=== PATIENT | male | born 1950 | race Caucasian/White ===

== ENCOUNTER 2017-11-13 11:08 | Observation (INO) | payer OTHER ==
[2017-11-13] VITALS (7 sets, daily range): BP systolic 113–188; BP diastolic 69–85; PULSE 58–75; RESP 16–19; TEMP 98.3–98.8; O2SAT 96–99
[~2017-11-13] VITALS: Ht 170.2 cm; Wt 90.6 kg
[2017-11-13] MEDS: SODIUM CHLOR 0.9% 1000 ML INJ 1,000 ML IV SCH ×2 (00:10→12:03)
[2017-11-13] MEDS ORDERED: CHOLESTEROL PILL (11:29)
[2017-11-13] MEDS ORDERED: TRAV0.00 EACH EYE (11:29)
[2017-11-13] MEDS ORDERED: DORZ2SOL7 EACH EYE (11:29)
[2017-11-13] MEDS ORDERED: POTA8CAP PO (11:29)
[2017-11-13] MEDS ORDERED: MAGN400T14 PO (11:29)
[2017-11-13] MEDS ORDERED: OMEP10CA PO (11:29)
[2017-11-13] MEDS ORDERED: DIAZ2TAB PO (11:29)
[2017-11-13] MEDS ORDERED: PIPERACIL-TAZO 3.375 GM PREMIX 50 ML IV ONE (11:45)
[2017-11-13 11:57] LABS: AUTOMATED NEUTROPHIL # 9.8 TH/MM3 (1.8-7.7); BASOPHIL # 0.1 TH/MM3 (0-0.2); BASOPHIL % 0.5 % (0.0-2.0); EOSINOPHIL # 0.1 TH/MM3 (0-0.4); EOSINOPHIL % 0.3 % (0.0-4.0); LYMPHOCYTE # 11.5 TH/MM3 (1.0-4.8); MEAN CELL VOLUME 84.6 FL (80.0-100.0); MEAN CORPUSCULAR HEMOGLOBIN 28.8 PG (27.0-34.0); MEAN PLATELET VOLUME 7.8 FL (7.0-11.0); MONO % 2.8 % (0.0-8.0); MONOCYTE # 0.6 TH/MM3 (0-0.9); NEUT % 44.4 % (16.0-70.0); PLATELET COUNT 207 TH/MM3 (150-450); RED BLOOD COUNT 5.55 MIL/MM3 (4.50-5.90); RED CELL DISTRIBUTION WIDTH 14.1 % (11.6-17.2)
--- NOTE | 2017-11-13 11:59 | PD ---
HPI Chief Complaint: Abdominal Pain Time Seen by Provider: 11:30 Travel History International Travel<30 days: No Contact w/Intl Traveler<30days: No Traveled to known affect area: No History of Present Illness HPI 66-year-old male that presents to the ED for evaluation of evaluation of appendicitis. Patient was seen by Dr. Ortega his primary care doctor today for evaluation of right lower quadrant pain since this morning. Per patient started around 3 AM and his primary care doctor recommended a CT scan. CT scan was done and show appendicitis. This was done at [facility]. Patient was sent here for evaluation and likely surgery. Patient voices no other medical issues at this time. He states that his pain is 7 out of 10. He states that he last ate this morning and all he had was coffee. She has a history of hernia repair years ago up [place] for an umbilical hernia and had a mesh placed. He denies any other symptoms. No bowel movement issues. No nausea or vomiting. No allergies to medication for no other medical issues. Has not taken anything for this. Nothing makes the pain better or worse. PFSH Past Medical History High Cholesterol: Yes Glaucoma: Yes Tetanus Vaccination: < 5 Years Influenza Vaccination: Yes Past Surgical History Abdominal Surgery: Yes (HERNIA ) Tonsillectomy: Yes (ADENOIDS ) Other Surgery: Yes (DEVIATED SEPTUM REPAIR AND UVULA REMOVAL ) Social History Alcohol Use: No Tobacco Use: No Substance Use: No Allergies-Medications (Allergen,Severity, Reaction): Coded Allergies: No Known Allergies (Unverified , 11/13/17) Reported Meds & Prescriptions Reported Meds & Active Scripts Active Reported Magnebind-400 Rx (Magnesium-Calcium Carbonates-Folic Acid) 400-200-1 Mg Tab 1 Tab PO TID Potassium Chloride ER (Potassium Chloride) 8 Meq Cap 8 Meq PO DAILY Diazepam 2 Mg Tab 2 Mg PO BID PRN [Cholesterol Pill] Omeprazole 10 Mg Cap 10 Mg PO DAILY Cosopt Opth Drops (Dorzolamide-Timolol Opth Drops) 22.3-6.8 Mg/Ml Soln 1 Drop EACH EYE BID Travatan Z Opth Drops (Travoprost) 0.004 % Soln 1 Drop EACH EYE HS Review of Systems Except as stated in HPI: all other systems reviewed are Neg Physical Exam Narrative GENERAL: SKIN: Warm and dry. HEAD: Atraumatic. Normocephalic. EYES: Pupils equal and round. No scleral icterus. No injection or drainage. ENT: No nasal bleeding or discharge. Mucous membranes pink and moist. Tongue is midline. No uvula deviation. NECK: Trachea midline. No JVD. CARDIOVASCULAR: Regular rate and rhythm. No murmurs, S3, S4. RESPIRATORY: No accessory muscle use. Clear to auscultation. Breath sounds equal bilaterally. GASTROINTESTINAL: Abdomen soft, reproducible right lower quadrant abdominal pain , nondistended. Hepatic and splenic margins not palpable. MUSCULOSKELETAL: Extremities without clubbing, cyanosis, or edema. No obvious deformities. Full range of motion of the upper and lower extremities bilaterally. 2+ pulses bilaterally. NEUROLOGICAL: Awake and alert. No obvious cranial nerve deficits. Motor grossly within normal limits. Five out of 5 muscle strength in the arms and legs. Normal speech. PSYCHIATRIC: Appropriate mood and affect; insight and judgment normal. Data Data Last Documented VS Vital Signs Date Time Temp Pulse Resp B/P (MAP) Pulse Ox O2 Delivery O2 Flow Rate FiO2 11/13/17 11:33 66 19 175/81 (112) 97 Room Air 11/13/17 11:17 98.3 Orders Orders Complete Blood Count With Diff (11/13/17 11:29) Comprehensive Metabolic Panel (11/13/17 11:29) Urinalysis - C+S If Indicated (11/13/17 11:29) Lipase (11/13/17 11:29) Iv Access Insert/Monitor (11/13/17 11:29) Oximetry (11/13/17 11:29) Piperacil-Tazo 3.375 Gm Premix (Zosyn 3. (11/13/17 11:45) Electrocardiogram (11/13/17 11:49) Chest, Single Ap (11/13/17 11:49) Sodium Chloride 0.9% Flush (Ns Flush) (11/13/17 12:00) Type And Screen (11/13/17 12:00) Admit Order (Ed Use Only) (11/13/17 12:04) Code Status (11/13/17 12:03) Vital Signs (Adult) Q4H (11/13/17 12:03) Activity Oob Ad Clarisa (11/13/17 12:03) Truck Striker / Telemetry .CONTINUOUS (11/13/17 12:03) Intake + Output MARIA ELENA.QSHIFT (11/13/17 12:03) Notify Dr: Other (11/13/17 12:03) Diet Npo (11/13/17 Lunch) Sodium Chlor 0.9% 1000 Ml Inj (Ns 1000 M (11/13/17 12:03) Sodium Chloride 0.9% Flush (Ns Flush) (11/13/17 12:15) Sodium Chloride 0.9% Flush (Ns Flush) (11/13/17 21:00) Acetaminophen (Tylenol) (11/13/17 12:15) Basic Metabolic Panel (Bmp) (11/14/17 06:00) Complete Blood Count With Diff (11/14/17 06:00) Resp Oxygen Adolfo C Titrat 1-4 L (11/13/17 ) Scd Bilateral/Knee High MARIA ELENA.BID (11/13/17 12:03) Naloxone Inj (Narcan Inj) (11/13/17 12:15) Sennosides (Senokot) (11/13/17 12:15) Bisacodyl Supp (Dulcolax Supp) (11/13/17 12:15) Lactulose Liq (Lactulose Liq) (11/13/17 12:15) Inpatient Certification (11/13/17 ) Ondansetron Odt (Zofran Odt) (11/13/17 12:15) Diazepam (Valium) (11/13/17 12:15) Dorzol-Timol 2-0.5% Opth Soln (Cosopt 2- (11/13/17 21:00) Potassium Chloride (Kcl) (11/14/17 09:00) (Nf) Travoprost Opth Drops (Travatan Z O (11/13/17 21:00) (Hub Use Only)Inp Phy Cons/Ref (11/13/17 ) Consult General Surgery (11/13/17 ) Place In Observation (11/13/17 ) Piperacil-Tazo 3.375 Gm Premix (Zosyn 3. (11/13/17 18:00) Labs Laboratory Tests Test 11/13/17 11:35 White Blood Count 22.0 TH/MM3 Red Blood Count 5.55 MIL/MM3 Hemoglobin 16.0 GM/DL Hematocrit 47.0 % Mean Corpuscular Volume 84.6 FL Mean Corpuscular Hemoglobin 28.8 PG Mean Corpuscular Hemoglobin Concent 34.0 % Red Cell Distribution Width 14.1 % Platelet Count 207 TH/MM3 Mean Platelet Volume 7.8 FL Neutrophils (%) (Auto) 44.4 % Lymphocytes (%) (Auto) 52.0 % Monocytes (%) (Auto) 2.8 % Eosinophils (%) (Auto) 0.3 % Basophils (%) (Auto) 0.5 % Neutrophils # (Auto) 9.8 TH/MM3 Lymphocytes # (Auto) 11.5 TH/MM3 Monocytes # (Auto) 0.6 TH/MM3 Eosinophils # (Auto) 0.1 TH/MM3 Basophils # (Auto) 0.1 TH/MM3 CBC Comment AUTO DIFF Urine Color YELLOW Urine Turbidity CLEAR Urine pH 5.5 Urine Specific Portia 1.019 Urine Protein NEG mg/dL Urine Glucose (UA) NEG mg/dL Urine Ketones NEG mg/dL Urine Occult Blood NEG Urine Nitrite NEG Urine Bilirubin NEG Urine Urobilinogen 0.2 MG/DL Urine Leukocyte Esterase NEG Urine RBC 1 /hpf Urine WBC LESS THAN 1 /hpf Microscopic Urinalysis Comment CULT NOT INDICATED Blood Urea Nitrogen 16 MG/DL Creatinine 1.16 MG/DL Random Glucose 113 MG/DL Total Protein 8.0 GM/DL Albumin 4.5 GM/DL Calcium Level 8.9 MG/DL Alkaline Phosphatase 64 U/L Aspartate Amino Transf (AST/SGOT) 15 U/L Alanine Aminotransferase (ALT/SGPT) 29 U/L Total Bilirubin 0.6 MG/DL Sodium Level 135 MEQ/L Potassium Level 4.1 MEQ/L Chloride Level 100 MEQ/L Carbon Dioxide Level 27.4 MEQ/L Anion Gap 8 MEQ/L Estimat Glomerular Filtration Rate 63 ML/MIN Lipase 189 U/L [facility] Medical Decision Making Medical Screen Exam Complete: Yes Emergency Medical Condition: Yes Medical Record Reviewed: Yes Interpretation(s) CBC & BMP Diagram 11/13/17 11:35 Total Protein 8.0, Albumin 4.5, Calcium Level 8.9, Alkaline Phosphatase 64, Aspartate Amino Transf (AST/SGOT) 15, Alanine Aminotransferase (ALT/SGPT) 29, Total Bilirubin 0.6 Differential Diagnosis Appendicitis was acute abdomen versus right lower quadrant pain Narrative Course 66-year-old male that presents to the ED for evaluation of appendicitis. Patient was properly examined and was found to have signs and symptoms consistent with appears to be appendicitis. Was able to review the records from [place] [facility] and patient did had a CT scan with findings consistent with appendicitis. My attending Dr. Triplett who was made aware of plan and of CT findings and spoke with Dr. Christy herself who agrees to be consulted and wants medicine to admit the patient. Patient and family agree with this. Labs and preop tests were ordered. Patient was started on Zosyn by my attending. HEPAS was paged. My attending spoke with Dr. Krueger who agrees to admission to his service for surgery. Diagnosis Primary Impression: Appendicitis Qualified Codes: K35.80 - Unspecified acute appendicitis Admitting Information Admitting Physician Requests: Observation Rah Meredith November 13, 2017 11:59
[2017-11-13] MEDS ORDERED: DEXAMETHASONE SOD PHOS 4 MG/ML VIAL IV ONE (12:00)
[2017-11-13] MEDS ORDERED: LIDOCAINE HCL 1% PF 5 ML SYRINGE OTHER ONE (12:00)
[2017-11-13] MEDS ORDERED: ROCURONIUM INJ 50 MG/5 ML SYRINGE IV PUSH ONE (12:00)
[2017-11-13] MEDS ORDERED: ACETAMINOPHEN 1000 MG/100 ML VIAL IV ONE (12:00)
[2017-11-13] MEDS ORDERED: SODIUM CHLORIDE 0.9% FLUSH 10 ML FLUSH IVF PRN (12:00)
[2017-11-13] MEDS ORDERED: SUGAMMADEX SODIUM 200 MG/2 ML VIAL IV PUSH ONE (12:00)
[2017-11-13] MEDS ORDERED: BUPIVACAINE/EPINEPHRINE 0.5% PF 30 ML VIAL ONE (12:00)
[2017-11-13] MEDS ORDERED: ONDANSETRON HCL 4 MG/2 ML VIAL IV ONE (12:00)
[2017-11-13] MEDS ORDERED: PROPOFOL 200 MG/20 ML AMP IV ONE (12:00)
--- NOTE | 2017-11-13 12:14 | HHI.HP ---
[facility] Ad[facility] Diagnosis Appendicitis Diagnoses: Chief Complaint: Appendicitis Travel History International Travel<30 Days: No Contact w/Intl Traveler <30 Da: No Traveled to Known Affected Are: No History of Present Illness This is a pleasant 66 y/o male who was sent to Emergency Room in this facility by his Primary care physician with diagnosis of Appendicitis, he was seen by his PCP Doctor Jordan right lower quadrant pain since this morning. Per patient started around 3 AM and his primary care doctor recommended a CT scan. CT scan was done and show appendicitis. This was done at [facility]. Patient was sent here for evaluation and likely surgery. Intensity of the pain 01/01, He states that he last ate this morning and all he had was coffee. She has a history of hernia repair years ago up [place] for an umbilical hernia and had a mesh placed. denied nausea and vomit, seen in Emergency room in the presence of his Mrs. Jameson Review of Systems Constitutional: DENIES: Fever, Chills, Change in appetite Endocrine: DENIES: Heat/cold intolerance Eyes: DENIES: Blurred vision, Eye pain Gastrointestinal: COMPLAINS OF: Abdominal pain Except as stated in HPI: all other systems reviewed are Neg Past Family Social History Past Medical History Hyperlipidemia Glaucoma GERD CLL Past Surgical History Hernia repair Tonsillectomy Adenoidectomy Deviated septum repair Reported Medications Reported Meds & Active Scripts Active Reported Magnebind-400 Rx (Magnesium-Calcium Carbonates-Folic Acid) 400-200-1 Mg Tab 1 Tab PO TID Potassium Chloride ER (Potassium Chloride) 8 Meq Cap 8 Meq PO DAILY Diazepam 2 Mg Tab 2 Mg PO BID PRN [Cholesterol Pill] Omeprazole 10 Mg Cap 10 Mg PO DAILY Cosopt Opth Drops (Dorzolamide-Timolol Opth Drops) 22.3-6.8 Mg/Ml Soln 1 Drop EACH EYE BID Travatan Z Opth Drops (Travoprost) 0.004 % Soln 1 Drop EACH EYE HS Allergies: Coded Allergies: No Known Allergies (Unverified , 11/13/17) Active Ordered Medications Current Medications Medications (Trade) Dose Ordered Sig/Candido Route Start Time Stop Time Status Last Admin (NS Flush) 2 ml UNSCH PRN IVF 11/13/17 12:00 Sodium Chloride 1,000 ml @ 100 mls/hr Q10H IV 11/13/17 12:03 (NS Flush) 2 ml UNSCH PRN IV FLUSH 11/13/17 12:15 (NS Flush) 2 ml BID IV FLUSH 11/13/17 21:00 (Tylenol) 650 mg Q4H PRN PO 11/13/17 12:15 (Zofran Odt) 4 mg Q6H PRN PO 11/13/17 12:15 (Narcan Inj) 0.4 mg UNSCH PRN IV PUSH 11/13/17 12:15 (Senokot) 17.2 mg Q12H PRN PO 11/13/17 12:15 (Dulcolax Supp) 10 mg DAILY PRN RECTAL 11/13/17 12:15 (Lactulose Liq) 30 ml DAILY PRN PO 11/13/17 12:15 (Valium) 2 mg BID PRN PO 11/13/17 12:15 (Cosopt 2-0.5% Opth Soln) 1 drop BID EACH EYE 11/13/17 21:00 (KCl) 8 meq DAILY PO 11/14/17 09:00 (Xalatan 0.005% Opth Soln) 1 drop HS EACH EYE 11/13/17 21:00 Piperacillin Sod/ Tazobactam Sod 50 ml @ 100 mls/hr Q6H IV 11/13/17 18:00 Family History Father with Hypertension Social History Denies any toxic habits. 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 Obesity SKIN: Warm and dry. HEAD: Atraumatic. Normocephalic. EYES: Pupils equal and round. No scleral icterus. No injection or drainage. ENT: No nasal bleeding or discharge. Mucous membranes pink and moist. Tongue is midline. No uvula deviation. NECK: Trachea midline. No JVD. CARDIOVASCULAR: Regular rate and rhythm. No murmurs, S3, S4. RESPIRATORY: No accessory muscle use. Clear to auscultation. Breath sounds equal bilaterally. GASTROINTESTINAL: Abdomen soft, reproducible right lower quadrant abdominal pain , nondistended. Hepatic and splenic margins not palpable. MUSCULOSKELETAL: Extremities without clubbing, cyanosis, or edema. No obvious deformities. Full range of motion of the upper and lower extremities bilaterally. 2+ pulses bilaterally. NEUROLOGICAL: Awake and alert. No obvious cranial nerve deficits. Motor grossly within normal limits. Five out of 5 muscle strength in the arms and legs. Normal speech. PSYCHIATRIC: Appropriate mood and affect; insight and judgment normal. Laboratory Laboratory Tests Test 11/13/17 11:35 White Blood Count 22.0 Red Blood Count 5.55 Hemoglobin 16.0 Hematocrit 47.0 Mean Corpuscular Volume 84.6 Mean Corpuscular Hemoglobin 28.8 Mean Corpuscular Hemoglobin Concent 34.0 Red Cell Distribution Width 14.1 Platelet Count 207 Mean Platelet Volume 7.8 Neutrophils (%) (Auto) 44.4 Lymphocytes (%) (Auto) 52.0 Monocytes (%) (Auto) 2.8 Eosinophils (%) (Auto) 0.3 Basophils (%) (Auto) 0.5 Neutrophils # (Auto) 9.8 Lymphocytes # (Auto) 11.5 Monocytes # (Auto) 0.6 Eosinophils # (Auto) 0.1 Basophils # (Auto) 0.1 CBC Comment AUTO DIFF Result Diagram: 11/13/[address] abdomen and Pelvis Dilated fluid filled appendix with probable appendicoliths and periappendiceal inflammatory changes no periappendiceal abscess is noted. Mild Splenomegaly Uncomplicated colonic diverticulosis Degenerative changes and scoliosis of the thoracolumbar spine. Caprini VTE Risk Assessment Caprini VTE Risk Assessment: No/Low Risk (score <= 1) Caprini Risk Assessment Model Point Value = 1 Point Value = 2 Point Value = 3 Point Value = 5 Age 41-60 Minor surgery BMI > 25 kg/m2 Swollen legs Varicose veins or History of unexplained or recurrent spontaneous Oral contraceptives or hormone replacement Sepsis (< 1 month) Serious lung disease, including pneumonia (< 1 month) Abnormal pulmonary function Acute myocardial infarction Congestive heart failure (< 1 month) History of inflammatory bowel disease Medical patient at bed rest Age 61-74 Arthroscopic surgery Major open surgery (> 45 min) Laparoscopic surgery (> 45 min) Malignancy Confined to bed (> 72 hours) Immobilizing plaster cast Central venous access Age >= 75 History of VTE Family history of VTE Factor V Leiden Prothrombin [id number] Lupus anticoagulant Anticardiolipin antibodies Elevated serum homocysteine Heparin-induced thrombocytopenia Other congenital or acquired thrombophilia Stroke (< 1 month) Elective arthroplasty Hip, pelvis, or leg fracture Acute spinal cord injury (< 1 month) Prophylaxis Regimen Total Risk Factor Score Risk Level Prophylaxis Regimen 0-1 Low Early ambulation 2 Moderate Order ONE of the following: *Sequential Compression Device (SCD) *Heparin 5000 units SQ BID 3-4 Higher Order ONE of the following medications: *Heparin 5000 units SQ TID *Enoxaparin/Lovenox 40 mg SQ daily (WT < 150 kg, CrCl > 30 mL/min) *Enoxaparin/Lovenox 30 mg SQ daily (WT < 150 kg, CrCl > 10-29 mL/min) *Enoxaparin/Lovenox 30 mg SQ BID (WT < 150 kg, CrCl > 30 mL/min) AND/OR *Sequential Compression Device (SCD) 5 or more Highest Order ONE of the following medications: *Heparin 5000 units SQ TID (Preferred with Epidurals) *Enoxaparin/Lovenox 40 mg SQ daily (WT < 150 kg, CrCl > 30 mL/min) *Enoxaparin/Lovenox 30 mg SQ daily (WT < 150 kg, CrCl > 10-29 mL/min) *Enoxaparin/Lovenox 30 mg SQ BID (WT < 150 kg, CrCl > 30 mL/min) AND *Sequential Compression Device (SCD) Assessment and Plan Assessment and Plan 1. Abdominal pain secondary to Acute appendicitis, recommended by General Specialty Person Doctor Avinash Christy to admit to medical team and he will be interior design consultant. CT abdomen and Pelvis Dilated fluid filled appendix with probable appendicoliths and periappendiceal inflammatory changes no periappendiceal abscess is noted. Mild Splenomegaly Uncomplicated colonic diverticulosis Degenerative changes and scoliosis of the thoracolumbar spine. 2. Hyperlipidemia to continue home medicines 3. Glaucoma continue Home medicines 4. GERD gastric protection 5. CLL he has research laboratory specialist following outpatient no management given yet. DVT prophylaxis SCDs due to surgery Code Status Full code. Discussed Condition With patient his and ER physician. Physician Certification 2 Midnight Certification Type: Admission for Inpatient Services Order for Inpatient Services The services are ordered in accordance with Medicare regulations or non- Medicare payer requirements, as applicable. In the case of services not specified as inpatient-only, they are appropriately provided as inpatient services in accordance with the 2-midnight benchmark. Estimated LOS (days): 1 days is the estimated time the patient will need to remain in the hospital, assuming treatment plan goals are met and no additional complications. Post-Hospital Plan: Home Jerardo Millan MD November 13, 2017 12:14
[2017-11-13] MEDS ORDERED: LACTULOSE SYRUP 20 GM/30 ML CUP PO PRN (12:15)
[2017-11-13] MEDS ORDERED: SENNOSIDES 8.6 MG TAB PO PRN (12:15)
[2017-11-13] MEDS ORDERED: ACETAMINOPHEN 325 MG TAB PO PRN (12:15)
[2017-11-13] MEDS ORDERED: SODIUM CHLORIDE 0.9% FLUSH 10 ML FLUSH IV FLUSH PRN (12:15)
[2017-11-13] MEDS ORDERED: NALOXONE HCL 0.4 MG/ML AMP IV PUSH PRN (12:15)
[2017-11-13] MEDS ORDERED: BISACODYL 10 MG SUPP RECTAL PRN (12:15)
[2017-11-13] MEDS ORDERED: ONDANSETRON ODT 4 MG TAB PO PRN (12:15)
[2017-11-13 12:19] LABS: BILIRUBIN, URINE NEG (NEG); BLOOD, URINE NEG (NEG); GLUCOSE,URINE NEG (NEG); KETONE, URINE NEG (NEG); NITRITE,URINE NEG (NEG); PH, URINE 5.5 (5.0-8.5); URINE COLOR YELLOW (YELLW/STRAW); URINE LEUKOCYTE ESTERASE NEG (NEG)
[2017-11-13 12:21] LABS: ALBUMIN 4.5 GM/DL (3.4-5.0); AST (GOT) 15 U/L (15-37); BICARBONATE 27.4 MEQ/L (21.0-32.0); BLOOD UREA NITROGEN 16 MG/DL (7-18); CALCIUM 8.9 MG/DL (8.5-10.1); CHLORIDE 100 MEQ/L (98-107); CREATININE 1.16 MG/DL (0.60-1.30); GLOMERULAR FILTRATION RATE 63 ML/MIN (>89); GLUCOSE,RANDOM 113 MG/DL (74-106); SODIUM (NA) 135 MEQ/L (136-145)
[2017-11-13 12:30] LABS: ALKALINE PHOSPHATASE 64 U/L (45-117); ALT (GPT) 29 U/L (12-78); TOTAL BILIRUBIN ADULT 0.6 MG/DL (0.2-1.0)
--- NOTE | 2017-11-13 12:30 | PD ---
Physical Exam Narrative GENERAL: 66-year-old male in no apparent distress SKIN: Focused skin assessment warm/dry. HEAD: Atraumatic. Normocephalic. EYES: Pupils equal and round. No scleral icterus. No injection or drainage. ENT: No nasal bleeding or discharge. Mucous membranes pink and moist. NECK: Trachea midline. CARDIOVASCULAR: Regular rate and rhythm. RESPIRATORY: No accessory muscle use. Clear to auscultation. Breath sounds equal bilaterally. GASTROINTESTINAL: Abdomen soft, tender right lower quadrant, nondistended. No rebound MUSCULOSKELETAL: No obvious deformities. No clubbing. No cyanosis. NEUROLOGICAL: Awake and alert. No obvious cranial nerve deficits. Motor grossly within normal limits. Normal speech. PSYCHIATRIC: Appropriate mood and affect; insight and judgment normal. Data Data Last Documented VS Vital Signs Date Time Temp Pulse Resp B/P (MAP) Pulse Ox O2 Delivery O2 Flow Rate FiO2 11/13/17 11:33 66 19 175/81 (112) 97 Room Air 11/13/17 11:17 98.3 Orders Orders Complete Blood Count With Diff (11/13/17 11:29) Comprehensive Metabolic Panel (11/13/17 11:29) Urinalysis - C+S If Indicated (11/13/17 11:29) Lipase (11/13/17 11:29) Iv Access Insert/Monitor (11/13/17 11:29) Oximetry (11/13/17 11:29) Piperacil-Tazo 3.375 Gm Premix (Zosyn 3. (11/13/17 11:45) Electrocardiogram (11/13/17 11:49) Chest, Single Ap (11/13/17 11:49) Sodium Chloride 0.9% Flush (Ns Flush) (11/13/17 12:00) Type And Screen (11/13/17 12:00) Admit Order (Ed Use Only) (11/13/17 12:04) Code Status (11/13/17 12:03) Vital Signs (Adult) Q4H (11/13/17 12:03) Activity Oob Ad Clarisa (11/13/17 12:03) Fire Department Marine Engineer / Telemetry .CONTINUOUS (11/13/17 12:03) Intake + Output MARIA ELENA.QSHIFT (11/13/17 12:03) Notify Dr: Other (11/13/17 12:03) Diet Npo (11/13/17 Lunch) Sodium Chlor 0.9% 1000 Ml Inj (Ns 1000 M (11/13/17 12:03) Sodium Chloride 0.9% Flush (Ns Flush) (11/13/17 12:15) Sodium Chloride 0.9% Flush (Ns Flush) (11/13/17 21:00) Acetaminophen (Tylenol) (11/13/17 12:15) Basic Metabolic Panel (Bmp) (11/14/17 06:00) Complete Blood Count With Diff (11/14/17 06:00) Resp Oxygen Adolfo C Titrat 1-4 L (11/13/17 ) Scd Bilateral/Knee High MARIA ELENA.BID (11/13/17 12:03) Naloxone Inj (Narcan Inj) (11/13/17 12:15) Sennosides (Senokot) (11/13/17 12:15) Bisacodyl Supp (Dulcolax Supp) (11/13/17 12:15) Lactulose Liq (Lactulose Liq) (11/13/17 12:15) Inpatient Certification (11/13/17 ) Ondansetron Odt (Zofran Odt) (11/13/17 12:15) Diazepam (Valium) (11/13/17 12:15) Dorzol-Timol 2-0.5% Opth Soln (Cosopt 2- (11/13/17 21:00) Potassium Chloride (Kcl) (11/14/17 09:00) (Nf) Travoprost Opth Drops (Travatan Z O (11/13/17 21:00) (Hub Use Only)Inp Phy Cons/Ref (11/13/17 ) Consult General Surgery (11/13/17 ) Place In Observation (11/13/17 ) Piperacil-Tazo 3.375 Gm Premix (Zosyn 3. (11/13/17 18:00) Labs Laboratory Tests Test 11/13/17 11:35 White Blood Count 22.0 TH/MM3 Red Blood Count 5.55 MIL/MM3 Hemoglobin 16.0 GM/DL Hematocrit 47.0 % Mean Corpuscular Volume 84.6 FL Mean Corpuscular Hemoglobin 28.8 PG Mean Corpuscular Hemoglobin Concent 34.0 % Red Cell Distribution Width 14.1 % Platelet Count 207 TH/MM3 Mean Platelet Volume 7.8 FL Neutrophils (%) (Auto) 44.4 % Lymphocytes (%) (Auto) 52.0 % Monocytes (%) (Auto) 2.8 % Eosinophils (%) (Auto) 0.3 % Basophils (%) (Auto) 0.5 % Neutrophils # (Auto) 9.8 TH/MM3 Lymphocytes # (Auto) 11.5 TH/MM3 Monocytes # (Auto) 0.6 TH/MM3 Eosinophils # (Auto) 0.1 TH/MM3 Basophils # (Auto) 0.1 TH/MM3 CBC Comment AUTO DIFF Blood Urea Nitrogen 16 MG/DL Creatinine 1.16 MG/DL Random Glucose 113 MG/DL Albumin 4.5 GM/DL Calcium Level 8.9 MG/DL Aspartate Amino Transf (AST/SGOT) 15 U/L Sodium Level 135 MEQ/L Potassium Level 4.1 MEQ/L Chloride Level 100 MEQ/L Carbon Dioxide Level 27.4 MEQ/L Anion Gap 8 MEQ/L Estimat Glomerular Filtration Rate 63 ML/MIN Lipase 189 U/L MDM Supervised Visit with STEFFANY: Yes Interpretation(s) CBC & BMP Diagram 11/13/17 11:35 Albumin 4.5, Calcium Level 8.9, Aspartate Amino Transf (AST/SGOT) [address] shows appendicitis without abscess Narrative Course I, Dr. lozada, have reviewed the advance practice practitioner's documentation and am in agreement, met with the patient face to face, made the diagnosis, and the medical decision making was done by me. *My assessment and Findings: 66-year-old male who presents with outpatient report of appendicitis. Patient symptoms are consistent with this. Discussed with surgeon and given Zosyn and will admit to medicine Physician Communication Physician Communication dr mills agrees to consult, requests admit to medicine Diagnosis Primary Impression: Appendicitis Qualified Codes: K35.80 - Unspecified acute appendicitis Admitting Information Admitting Physician Requests: Observation Jigna Lozada MD November 13, 2017 12:30
[2017-11-13 12:32] LABS: LYMPHOCYTES 60 % (9-44); NEUTROPHIL # MANUAL DIFF 8.8 TH/MM3 (1.8-7.7); POLYS (SEG NEUTROPHILS) 40 % (16-70)
--- NOTE | 2017-11-13 13:33 | RADRPT ---
EXAM DATE: 11/13/2017 1:00 PM EDT AGE/SEX: 66 years / Male INDICATIONS: Evaluate for pneumothorax, pneumonia or communicable disease, for appendectomy today, a bdominal pain, gas and pressure upper abdomen and lower chest CLINICAL DATA: This is the patient's initial encounter. Patient reports that signs and symptoms have been present for 1 day and indicates a pain score of 10/10. MEDICAL/SURGICAL HISTORY: . appendicitis None. COMPARISON: No prior [facility] exams available for comparison. FINDINGS: A single AP view of the chest demonstrates the lungs to be symmetrically aerated without e vidence of mass, infiltrate or effusion. The cardiomediastinal contours are unremarkable. Osseous s tructures are intact. CONCLUSION: No acute pulmonary infiltrates Electronically signed by: Franc Henriquez MD 11/13/2017 1:32 PM EDT
[2017-11-13] MEDS ORDERED: METOCLOPRAMIDE HCL 10 MG/2 ML VIAL IV PUSH ONE (13:45)
[2017-11-13] MEDS ORDERED: MORPHINE SULFATE 4 MG/ML INJ IV PUSH ONE (13:45)
--- NOTE | 2017-11-13 14:02 | EKG ---
Date Performed: 11/13/2017 Time Performed: 12:15:24 PTAGE: 66 years EKG: Baseline artifact present Sinus rhythm RIGHT BUNDLE BRANCH BLOCK ABNORMAL ECG NO PREVIOUS TRACING DOCTOR: Roberto Bowers Interpretating Date/Time 11/13/2017 14:01:56
--- NOTE | 2017-11-13 18:26 | MB ---
cc: Avinash Christy MD DATE: 11/13/2017 REASON FOR CONSULTATION: Acute appendicitis. HISTORY OF PRESENT ILLNESS: The patient is a 66-year-old male who started to have pain last night and had increasing pain today. Patient had CT scan which demonstrates appendicitis at [facility]. The patient was sent to the [place] emergency department for evaluation. The patient had no nausea or vomiting and had a bowel movement early this morning. The patient had coffee with cream early this morning. REVIEW OF SYSTEMS: Negative except for the following, he has a history of CLL that he reports as stage I. He has GE reflux disease and glaucoma for which he takes eyedrops, as well as history of hyperlipidemia. PAST SURGICAL HISTORY: Include adenoidectomy, deviated septum repair, as well as tonsillectomy. The patient also reports umbilical hernia repair with mesh. MEDICATIONS: Include: 1. Omeprazole 10 mg p.o. every day. 2. Cosopt ophthalmic drops 1 drop in each eye b.i.d. 3. Travatan Z ophthalmic drops 0.004% one drop in each eye at bedtime. 4. Diazepam 2 mg p.o. b.i.d. p.r.n. 5. Potassium chloride 8 mEq every day. 6. MagneBind 400 RX 1 tab p.o. t.i.d. ALLERGIES: THE PATIENT HAS NO KNOWN ALLERGIES. SOCIAL HISTORY: Denies any drinking or smoking or use of illicit drugs. PHYSICAL EXAMINATION: GENERAL: Exam reveals a male in no acute distress. VITAL SIGNS: BP 175/81, pulse 66, respirations 19, 97% saturation on room air. Sclerae are anicteric. Pupils are reactive. NECK: Supple. CHEST: Clear to auscultation. CARDIOVASCULAR: Reveals regular rate and rhythm. ABDOMEN: Soft, with tenderness in the right lower quadrant. There is an edge of mesh that can be palpated in the umbilicus. There is no evidence of hernias. EXTREMITIES: Pulses are present. NEUROLOGIC: Nonfocal. LABORATORY DATA: Demonstrate WBCs of 22.0, hemoglobin is 16, hematocrit is 47.0, patient has 11.5 lymphs, 9.8 neutrophils with 52% lymphocytes on the automated diff. The patient has 40 neutrophils, 60 lymphocytes on the manual diff. Chemistries demonstrate BUN of 16, creatinine of 1.16, potassium is 4.1. Urinalysis is negative. Immunology demonstrates IgG of 764, which is in normal reference range of 670-1650. Imaging, outside CT scan demonstrating a dilated appendix with a periappendiceal inflammatory process. No perforation or free fluid noted. ASSESSMENT: Acute appendicitis without perforation. PLAN: The patient has been given IV Zosyn. I am attempting to get the patient onto the operative schedule as soon as possible. I have been informed as of 11:54 a.m. that they will not be able to accommodate until late this afternoon. We will await confirmation of timing. I have discussed risks of surgery with the patient and his including, but not limited to, bleeding, infection, leakage, adhesion formation, need for drainage with abscess formation. I have discussed remedies, consequences, alternatives and convalescence; they vocalized understanding and agreed to proceed. MD SHIMON Seth/SYL , 05:58 PM , 06:25 PM MTDD
[2017-11-13] MEDS ORDERED: LACTATED RINGER'S 1000 ML IV PRN (18:30)
[2017-11-13] MEDS ORDERED: POVIDONE IODINE 5% (ANTISEPSIS KIT) 4 APPLICATIONS EACH NARE PRN (18:30)
[2017-11-13] MEDS ORDERED: CHLORHEXIDINE GLUCONATE 2 % 1 PACK (2 CLOTHS) TOPICAL PRN (18:30)
[2017-11-13] MEDS ORDERED: SODIUM CHLORID 0.9% 500 ML IV PRN (18:30)
[2017-11-13] MEDS: PIPERACIL-TAZO 3.375 GM PREMIX 50 ML IV SCH (18:42)
[2017-11-13] MEDS: SODIUM CHLORIDE 0.9% FLUSH 10 ML FLUSH IV FLUSH SCH (21:00)
[2017-11-13] MEDS: LATANOPROST 0.005% OPHT SOLN 2.5 ML BTL EACH EYE SCH (21:00)
[2017-11-13] MEDS: DORZOLAMIDE/TIMOLOL OPTH SOLN 10 ML BTL EACH EYE SCH (21:00)
[2017-11-14] VITALS (10 sets, daily range): BP systolic 134–190; BP diastolic 65–80; PULSE 67–79; RESP 16–20; TEMP 95.7–98.4; O2SAT 91–100
[2017-11-14] MEDS ORDERED: ACETAMINOPHEN/HYDROcodone 325 MG/7.5 MG TAB PO PRN ×2
--- NOTE | 2017-11-14 00:02 | HHI.PR ---
cc: Avinash Christy MD Immediate Post Op Note Procedure Date: November 13, 2017 Pre Op Diagnosis: Acute appendicitis Post Op Diagnosis: Perforated appendicitis Surgeon: Avinash Christy Technology Specialist(s): Uma Ledezma CFA Procedure: Laparoscopic appendectomy Findings: Gangrenous appendicitis with perforation Complications: None Specimen(s) removed: Appendix to pathology Estimated blood loss: 75 ml Anesthesia: General Drains: None IVF (1300 ml) Patient to: PACU Patient Condition: Good Date/Time of Procedure: SEE SURGICAL CARE RECORD Avinash Christy MD November 14, 2017 00:02
[2017-11-14] MEDS: PIPERACIL-TAZO 3.375 GM PREMIX 50 ML IV SCH ×4 (00:10→18:56)
--- NOTE | 2017-11-14 00:22 | MP ---
cc: Avinash Christy MD DATE OF OPERATION: 11/13/2017 PROCEDURE PERFORMED: Laparoscopic appendectomy. PREOPERATIVE DIAGNOSIS: Acute appendicitis. POSTOPERATIVE DIAGNOSIS: Gangrenous appendicitis with contained perforation. ESTIMATED BLOOD LOSS: 75 mL FLUIDS: 1300 mL crystalloid. COMPLICATIONS: None. DRAINS: None. SPECIMENS: Appendix to pathology. PROCEDURE IN DETAIL: The patient was taken to the operating room and placed on the operating table in the supine position. After an adequate level of general endotracheal anesthesia was achieved, the abdomen was shaved, prepped and draped. Timeout was taken, confirming the correct patient, site and procedure to be performed. Incision was made below the umbilicus in a longitudinal fashion and carried down to the fascia. Subfascial plane was developed and the 12 mm trocar was then inserted. The abdomen was insufflated. We were in the preperitoneal space and, thus, the trocar was removed. The posterior fascia was elevated and this was opened sharply. The peritoneal cavity was then directly visualized. A 12 mm trocar was reinserted and the balloon inflated. The abdomen was then insufflated. Two 5 mm trocars were then placed with the patient in Trendelenburg position. The first was placed in the right lower quadrant and the second to the right of the midline, but between the umbilicus and the symphysis. Both entered the abdominal cavity under direct vision uneventfully. These positions were chosen slightly out of symmetry because the appendix was located in the right lower quadrant, but up towards the level of the umbilicus. At this point, the appendix was seen to be plastered against the cecum. This was dissected off with gentle blunt dissection. The appendix was seen to be gangrenous at this point. In the appendix off of the cecum, a small perforation was present, but was contained. By manipulating the appendix, this was freely perforated. All material was then irrigated and aspirated immediately. When this had been completed, the mesoappendix was dissected off of the appendix with the Harmonic scalpel. When this had been completely dissected, a 0 PDS Endoloop was slipped over the appendix and cinched down at the base. The PDS Endoloop was trimmed and the appendix divided 1 cm distal to the Endoloop. The appendix was placed into an EndoCatch device and removed via the infraumbilical midline 12 mm trocar site. The appendiceal stump was reexamined, irrigated and seemed to be dry. The mesoappendix was dry as well. Copious irrigation was utilized to clean the entire right lower quadrant. When this had been completed, the appendiceal stump and mesoappendix were seen to be clean and dry. Insufflation was discontinued and the 5 mm trocars were removed under direct vision. No bleeding was noted from the trocar sites. The infraumbilical 12 mm trocar was removed and the fascia closed in 2 layers with 0 Vicryl suture in a simple interrupted fashion. When this had been completed, the remaining local anesthetic was injected into the trocar sites. The skin was closed at all 3 trocar sites with 4-0 Vicryl in an interrupted buried fashion. All sites were dressed with Steri-Strips. A drain was not placed, as the perforation was only at the time of the surgery and all contamination was immediately aspirated. The patient tolerated the procedure well. MD SHIMON Seth/SYL , 12:07 AM , 12:22 AM ANDRESSA
[2017-11-14] MEDS ORDERED: DO NOT ADM ANY ANTICOAGULANT DRUGS PRN (00:30)
[2017-11-14] MEDS: DORZOLAMIDE/TIMOLOL OPTH SOLN 10 ML BTL EACH EYE SCH ×2 (06:58→22:47)
[2017-11-14] MEDS: SODIUM CHLOR 0.9% 1000 ML INJ 1,000 ML IV SCH ×2 (08:03→18:03)
[2017-11-14 09:34] LABS: AUTOMATED NEUTROPHIL # 11.2 TH/MM3 (1.8-7.7); BASOPHIL % 0.1 % (0.0-2.0); HEMATOCRIT 42.9 % (39.0-51.0); HEMOGLOBIN 14.6 GM/DL (13.0-17.0); LYMPH % 42.9 % (9.0-44.0); MEAN CORPUSCULAR HEMOGLOBIN 28.9 PG (27.0-34.0); MONO % 3.1 % (0.0-8.0); MONOCYTE # 0.7 TH/MM3 (0-0.9); NEUT % 53.9 % (16.0-70.0); PLATELET COUNT 187 TH/MM3 (150-450); RED BLOOD COUNT 5.05 MIL/MM3 (4.50-5.90); RED CELL DISTRIBUTION WIDTH 13.6 % (11.6-17.2); WHITE BLOOD COUNT 20.9 TH/MM3 (4.0-11.0)
[2017-11-14 09:59] LABS: BICARBONATE 22.3 MEQ/L (21.0-32.0); CALCIUM 8.2 MG/DL (8.5-10.1)
--- NOTE | 2017-11-14 10:09 | HHI.PR ---
Subjective Subjective Notes Resting in bed Feeling okay Walked already this AM Objective Vitals/I&O Vital Signs Date Time Temp Pulse Resp B/P (MAP) Pulse Ox O2 Delivery O2 Flow Rate FiO2 11/14/17 08:30 98.1 68 18 134/65 (88) 94 11/14/17 01:00 Nasal Cannula 2 Labs Laboratory Tests Test 11/13/17 11:35 11/14/17 09:10 White Blood Count 22.0 20.9 Red Blood Count 5.55 5.05 Hemoglobin 16.0 14.6 Hematocrit 47.0 42.9 Mean Corpuscular Volume 84.6 85.0 Mean Corpuscular Hemoglobin 28.8 28.9 Mean Corpuscular Hemoglobin Concent 34.0 34.0 Red Cell Distribution Width 14.1 13.6 Platelet Count 207 187 Mean Platelet Volume 7.8 8.0 Neutrophils (%) (Auto) 44.4 53.9 Lymphocytes (%) (Auto) 52.0 42.9 Monocytes (%) (Auto) 2.8 3.1 Eosinophils (%) (Auto) 0.3 0.0 Basophils (%) (Auto) 0.5 0.1 Neutrophils # (Auto) 9.8 11.2 Lymphocytes # (Auto) 11.5 9.0 Monocytes # (Auto) 0.6 0.7 Eosinophils # (Auto) 0.1 0.0 Basophils # (Auto) 0.1 0.0 CBC Comment AUTO DIFF AUTO DIFF Differential Total Cells Counted 100 Neutrophils % (Manual) 40 Lymphocytes % 60 Neutrophils # (Manual) 8.8 Differential Comment FINAL DIFF MANUAL Platelet Estimate NORMAL Platelet Morphology Comment NORMAL Urine Color YELLOW Urine Turbidity CLEAR Urine pH 5.5 Urine Specific [place] 1.019 Urine Protein NEG Urine Glucose (UA) NEG Urine Ketones NEG Urine Occult Blood NEG Urine Nitrite NEG Urine Bilirubin NEG Urine Urobilinogen 0.2 Urine Leukocyte Esterase NEG Urine RBC 1 Urine WBC LESS THAN 1 Microscopic Urinalysis Comment CULT NOT INDICATED Blood Urea Nitrogen 16 11 Creatinine 1.16 Random Glucose 113 164 Total Protein 8.0 Albumin 4.5 Calcium Level 8.9 8.2 Alkaline Phosphatase 64 Aspartate Amino Transf (AST/SGOT) 15 Alanine Aminotransferase (ALT/SGPT) 29 Total Bilirubin 0.6 Sodium Level 135 138 Potassium Level 4.1 3.9 Chloride Level 100 104 Carbon Dioxide Level 27.4 22.3 Anion Gap 8 12 Estimat Glomerular Filtration Rate 63 Lipase 189 Immunoglobulin G Total 764 Cardiovascular: Regular Lungs: Clear Abdomen: Other (soft; minimally tender; umbilical incision with some mild drainage of gauze ) Extremities: No edema A/P Assessment and Plan 66 year old male POD1 lap appy; gangrenous; with perforation -Clear liquids -Patient high risk for ileus--- encouraged small sips -IVF -Zosyn -Pain control -OOB as tolerated -Transfer to ---I spoke with Charge Nurse Katie Attending Note - Dr. Christy No fevers; tolerating clears Old drainage on umbilicus No flatus or BM yet; at increased risk for abscess and ileus Advance to full liquids; regular diet when bowel activity returns D/C tele; change to PO antibiotics in AM; will need 5 days after discharge to minimize chance of abscess formation OK to shower Return to office tentatively next Sunday; he has tramadol at home; requested NO NARCOTICS to go home The exam, history, and the medical decision-making described in the above note were completed with the assistance of the mid-level provider. I reviewed and agree with the findings presented. I attest that I had a [id number] encounter with the patient on the same day, and personally performed and documented my assessment and findings in the medical record. Whit KaurP/Porcelain Enamel Sprayer LUDWIN November 14, 2017 10:08 Avinash Christy MD November 14, 2017 13:33
[2017-11-14 10:11] LABS: CREATININE 1.16 MG/DL (0.60-1.30)
[2017-11-14] MEDS: POTASSIUM CHLORIDE 8 MEQ CAP PO SCH (10:41)
[2017-11-14] MEDS: SODIUM CHLORIDE 0.9% FLUSH 10 ML FLUSH IV FLUSH SCH ×2 (10:41→22:47)
[2017-11-14 10:49] LABS: LYMPHOCYTES 44 % (9-44); MONOCYTES 6 % (0-8); NEUTROPHIL # MANUAL DIFF 10.5 TH/MM3 (1.8-7.7); POLYS (SEG NEUTROPHILS) 50 % (16-70)
--- NOTE | 2017-11-14 12:58 | HHI.PR ---
Subjective Remarks Follow-up appendicitis. Complaining of tolerable pain does not want to take narcotic. Tolerated liquid diet still has not passed gas. Objective Vitals Vital Signs Date Time Temp Pulse Resp B/P (MAP) Pulse Ox O2 Delivery O2 Flow Rate FiO2 11/14/17 12:00 95.7 67 17 140/73 (95) 100 11/14/17 08:30 98.1 68 18 134/65 (88) 94 11/14/17 04:00 74 11/14/17 01:30 97.5 69 16 152/70 (97) 91 11/14/17 01:00 67 13 144/68 (93) 95 Nasal Cannula 2 11/14/17 00:45 68 14 143/67 (92) 95 Nasal Cannula 2 11/14/17 00:34 96 Nasal Cannula 2.00 11/14/17 00:30 97.6 81 20 151/70 (97) 96 Nasal Cannula 2 11/14/17 00:15 90 16 165/69 (101) 93 Room Air 11/14/17 00:03 97.7 101 15 168/79 (108) 95 Simple Mask 5 11/13/17 20:45 70 18 159/79 (105) 92 11/13/17 20:15 98.8 74 19 163/72 (102) 92 11/13/17 20:15 74 11/13/17 19:43 98.8 73 16 188/84 (118) 96 11/13/17 16:41 98.4 64 18 162/ 96 11/13/17 14:50 11/13/17 13:47 18 11/13/17 13:37 61 17 147/69 (95) 98 Room Air I/O 11/13/17 11/13/17 11/13/17 11/14/17 11/14/17 11/14/17 07:00 15:00 23:00 07:00 15:00 23:00 Intake Total 50 ml 550 ml 1300 ml Output Total 0 ml 475 ml Balance 50 ml 550 ml 825 ml Intake Oral 0 ml IV Total 50 ml 550 ml Other 1300 ml Output Urine Total 400 ml Estimated Blood Loss 75 ml Other 0 ml # Voids 1 1 # Bowel Movements 1 Result Diagram: 11/14/17 0910 11/14/17 0910 Imaging Last Impressions Chest X-Ray 11/13/17 1149 Signed Impressions: CONCLUSION: No acute pulmonary infiltrates Objective Remarks GENERAL: No acute distress. SKIN: Warm and dry. CARDIOVASCULAR: Regular rate and rhythm. No murmurs, S3, S4. RESPIRATORY: No accessory muscle use. Clear to auscultation. Breath sounds equal bilaterally. GASTROINTESTINAL: Abdomen soft, Tender over operative site, nondistended. MUSCULOSKELETAL: Extremities without clubbing, cyanosis, or edema. No obvious deformities. Full range of motion of the upper and lower extremities bilaterally. 2+ pulses bilaterally. NEUROLOGICAL: Awake and alert. No obvious cranial nerve deficits. Motor grossly within normal limits. Five out of 5 muscle strength in the arms and legs. Normal speech. PSYCHIATRIC: Appropriate mood and affect; insight and judgment normal. Procedures appendectomy A/P Problem List: (1) Appendicitis ICD Code: K37 - Unspecified appendicitis Status: Acute Assessment and Plan 1. Gangrenous appendicitis with contained perforation status post laparoscopic appendectomy. Stable with improving leukocytosis continue postoperative care with IV Zosyn, pain management counseled regarding narcotics, clear liquid diet , increase activity and incentive spirometry. 2. Multiple medical conditions of hyperlipidemia, Glaucoma and CLL. Stable continue outpatient medications as appropriate DVT prophylaxis SCDs. Pharmacological prophylaxis per general surgery Discharge Planning Discharge per general surgery Problem Qualifiers (1) Appendicitis: Qualified Codes: K35.80 - Unspecified acute appendicitis Misha Khan MD November 14, 2017 12:58
[2017-11-14] MEDS ORDERED: MORPHINE SULFATE 4 MG/ML INJ IV PUSH PRN (13:30)
[2017-11-14] MEDS ORDERED: ZOLPIDEM TARTRATE 10 MG TAB PO PRN (13:30)
[2017-11-14] MEDS: metroNIDAZOLE 500 MG TAB PO SCH ×2 (14:20→22:46)
[2017-11-14] MEDS: DIAZEPAM 2 MG TAB PO PRN ×2 (14:52→22:46)
[2017-11-14] MEDS: LATANOPROST 0.005% OPHT SOLN 2.5 ML BTL EACH EYE SCH (22:48)
[2017-11-15] VITALS: BP 147/67; PULSE 77; RESP 17; TEMP 97.7; O2SAT 95
[2017-11-15] MEDS: PIPERACIL-TAZO 3.375 GM PREMIX 50 ML IV SCH ×2 (00:04→05:39)
[2017-11-15 04:00] VITALS: BP 145/62; PULSE 79; RESP 17; TEMP 97.5; O2SAT 94
[2017-11-15] MEDS: SODIUM CHLOR 0.9% 1000 ML INJ 1,000 ML IV SCH (04:03)
[2017-11-15] MEDS: metroNIDAZOLE 500 MG TAB PO SCH ×3 (05:39→20:27)
[2017-11-15 08:00] VITALS: BP 150/66; PULSE 64; RESP 16; TEMP 97.2; O2SAT 94
[2017-11-15] MEDS: SODIUM CHLORIDE 0.9% FLUSH 10 ML FLUSH IV FLUSH SCH ×2 (08:41→19:39)
[2017-11-15] MEDS: CIPROFLOXACIN 500 MG TAB PO SCH ×2 (08:41→19:38)
[2017-11-15] MEDS: DORZOLAMIDE/TIMOLOL OPTH SOLN 10 ML BTL EACH EYE SCH ×2 (08:41→19:38)
[2017-11-15] MEDS: POTASSIUM CHLORIDE 8 MEQ CAP PO SCH (08:41)
[2017-11-15] MEDS ORDERED: ACETAMINOPHEN/HYDROcodone 325 MG/5 MG TAB PO PRN ×2 (10:45)
[2017-11-15] MEDS ORDERED: oxyCODONE/ACETAMINOPHEN 5 MG/325 MG TAB PO PRN (11:30)
--- NOTE | 2017-11-15 11:31 | HHI.PR ---
Subjective Subjective Notes Up ambulating in the room Pain not controlled well---requesting Percocet Does not feel ready for regular food Objective Vitals/I&O Vital Signs Date Time Temp Pulse Resp B/P (MAP) Pulse Ox O2 Delivery O2 Flow Rate FiO2 11/15/17 08:00 97.2 64 16 150/66 (94) 94 11/14/17 15:47 21 11/14/17 01:00 Nasal Cannula 2 Cardiovascular: Regular Lungs: Clear Abdomen: Other (Tender at umbilicus; soft ), Post-op tenderness Extremities: No edema A/P Assessment and Plan 66 year old male POD2 lap appy; gangrenous; with perforation -Continue full liquids--- maybe advance to soft diet later today -Added Percocet -DC IVF -PO Cipro/Flagyl -OOB as tolerated Attending Note - Dr. Christy Painful today, but passing flatus Steristrips clean with old drainage on umbilical strips Needs to stay today; possible D/C in AM The exam, history, and the medical decision-making described in the above note were completed with the assistance of the mid-level provider. I reviewed and agree with the findings presented. I attest that I had a [id number] encounter with the patient on the same day, and personally performed and documented my assessment and findings in the medical record. Whit KaurP/Production Supervisor PROTOHISTORIAN November 15, 2017 11:31 Avinash Christy MD November 15, 2017 13:07
[2017-11-15 12:00] VITALS: BP 146/69; PULSE 68; RESP 16; TEMP 97.5; O2SAT 95
[2017-11-15] MEDS: oxyCODONE/ACETAMINOPHEN 5 MG/325 MG TAB PO PRN ×2 (12:34→20:28)
[2017-11-15] MEDS ORDERED: CIPR-9 PO (13:15)
[2017-11-15] MEDS ORDERED: METR-1 PO (13:15)
[2017-11-15] MEDS ORDERED: OXYC1TAB63 PO (13:15)
--- NOTE | 2017-11-15 15:12 | HHI.PR ---
Subjective Remarks Nursing denies any deterioration since last night. Patient has no new complaints. Reports having gas But not a bowel movement Objective Vital Signs Date Time Temp Pulse Resp B/P (MAP) Pulse Ox O2 Delivery O2 Flow Rate FiO2 11/15/17 12:00 97.5 68 16 146/69 (94) 95 11/15/17 08:00 97.2 64 16 150/66 (94) 94 11/15/17 04:00 97.5 79 17 145/62 (89) 94 11/15/17 00:00 97.7 77 17 147/67 (93) 95 11/14/17 20:00 97.9 79 20 190/80 (116) 95 11/14/17 19:07 99 11/14/17 18:00 97.6 11/14/17 16:00 98.4 69 18 141/69 (93) 93 11/14/17 15:47 92 21 I/O 11/14/17 11/14/17 11/14/17 11/15/17 11/15/17 11/15/17 07:00 15:00 23:00 07:00 15:00 23:00 Intake Total 1300 ml 745 ml 580 ml Output Total 475 ml 1900 ml Balance 825 ml 745 ml -1320 ml Intake Oral 745 ml 480 ml IV Total 100 ml Other 1300 ml Output Urine Total 400 ml 1900 ml Estimated Blood Loss 75 ml # Voids 1 2 # Bowel Movements 1 Result Diagram: 11/14/17 0910 11/14/17 0910 Objective Remarks Patient ambulating up and down the hallway in no acute distress Abdomen is soft, nontender, incisions look good A/P Assessment and Plan 1. Gangrenous appendicitis with contained perforation status post laparoscopic appendectomy. Stable with improving leukocytosis continue postoperative care. Flagyl and cipro. 2. Multiple medical conditions of hyperlipidemia, Glaucoma and CLL. Stable continue outpatient medications as appropriate DVT prophylaxis SCDs. Pharmacological prophylaxis per general surgery Discharge Planning trial of PO pain meds and awaiting BM; anticipate dc in Dheeraj Gregorio MD November 15, 2017 15:12
[2017-11-15 16:00] VITALS: BP 147/67; PULSE 65; RESP 16; TEMP 96.9; O2SAT 95
[2017-11-15] MEDS: DIAZEPAM 2 MG TAB PO PRN (19:38)
[2017-11-15] MEDS: LATANOPROST 0.005% OPHT SOLN 2.5 ML BTL EACH EYE SCH (19:39)
[2017-11-15 20:00] VITALS: BP 136/65; PULSE 78; RESP 17; TEMP 97.7; O2SAT 93
[2017-11-16] VITALS: BP 124/66; PULSE 60; RESP 17; TEMP 97.3; O2SAT 96
[2017-11-16] MEDS: oxyCODONE/ACETAMINOPHEN 5 MG/325 MG TAB PO PRN ×2 (00:30→05:11)
[2017-11-16] MEDS: metroNIDAZOLE 500 MG TAB PO SCH (05:04)
[2017-11-16 08:00] VITALS: BP 134/62; PULSE 65; RESP 16; TEMP 97.4; O2SAT 95
--- NOTE | 2017-11-16 08:02 | HHI.PR ---
Subjective Subjective Notes Feeling much better this morning. Passing flatus; no BM yet; tolerating diet without bloating. Objective Vitals/I&O Vital Signs Date Time Temp Pulse Resp B/P (MAP) Pulse Ox O2 Delivery O2 Flow Rate FiO2 11/16/17 00:00 97.3 60 17 124/66 (85) 96 11/14/17 15:47 21 11/14/17 01:00 Nasal Cannula 2 Abdomen: Non-distended, Non-tender Narrative Exam Trocar sites clean and dry; ecchymosis under umbilical incision. A/P Assessment and Plan 66 year old male POD#3 lap appy; gangrenous; with perforation -Tolerating diet -PO Cipro/Flagyl -D/C home today -Follow up my office next Sunday Avinash Christy MD November 16, 2017 08:02
[2017-11-16] MEDS: POTASSIUM CHLORIDE 8 MEQ CAP PO SCH (09:54)
[2017-11-16] MEDS: DIAZEPAM 2 MG TAB PO PRN (09:54)
[2017-11-16] MEDS: SODIUM CHLORIDE 0.9% FLUSH 10 ML FLUSH IV FLUSH SCH (09:55)
[2017-11-16] MEDS: CIPROFLOXACIN 500 MG TAB PO SCH (09:55)
[2017-11-16] MEDS: DORZOLAMIDE/TIMOLOL OPTH SOLN 10 ML BTL EACH EYE SCH (09:56)
[2017-11-16 10:07] VITALS: O2SAT 95
[2017-11-16] MEDS ORDERED: DOCU100C15 PO (11:00)
[2017-11-16] MEDS ORDERED: LACTTAB8 PO (11:00)
--- NOTE | 2017-11-16 13:16 | HHI.DS ---
Discharge Summary Admission Date November 13, 2017 at 12:05 Discharge Date: November 16, 2017 Admitting Diagnosis Appendicitis (1) Appendicitis ICD Code: K37 - Unspecified appendicitis Status: Acute Procedures appendectomy Brief History - From Admission This is a pleasant 66 y/o male who was sent to Emergency Room in this facility by his Primary care physician with diagnosis of Appendicitis, he was seen by his PCP Doctor Jordan right lower quadrant pain since this morning. Per patient started around 3 AM and his primary care doctor recommended a CT scan. CT scan was done and show appendicitis. This was done at [facility]. Patient was sent here for evaluation and likely surgery. Intensity of the pain 01/01, He states that he last ate this morning and all he had was coffee. She has a history of hernia repair years ago up [place] junction for an umbilical hernia and had a mesh placed. denied nausea and vomit, seen in Emergency room in the presence of his Mrs. Jameson CBC/BMP: 11/14/17 0910 11/14/17 0910 Significant Findings Laboratory Tests Test 11/14/17 09:10 White Blood Count 20.9 TH/MM3 (4.0-11.0) Neutrophils # (Auto) 11.2 TH/MM3 (1.8-7.7) Lymphocytes # (Auto) 9.0 TH/MM3 (1.0-4.8) Neutrophils # (Manual) 10.5 TH/MM3 (1.8-7.7) Random Glucose 164 MG/DL (74-106) Calcium Level 8.2 MG/DL (8.5-10.1) Estimat Glomerular Filtration Rate 63 ML/MIN (>89) PE at Discharge GENERAL: No acute distress. SKIN: Warm and dry. CARDIOVASCULAR: Regular rate and rhythm. No murmurs, S3, S4. RESPIRATORY: No accessory muscle use. Clear to auscultation. Breath sounds equal bilaterally. GASTROINTESTINAL: Abdomen soft, Tender over operative site, nondistended. MUSCULOSKELETAL: Extremities without clubbing, cyanosis, or edema. No obvious deformities. Full range of motion of the upper and lower extremities bilaterally. 2+ pulses bilaterally. NEUROLOGICAL: Awake and alert. No obvious cranial nerve deficits. Motor grossly within normal limits. Five out of 5 muscle strength in the arms and legs. Normal speech. PSYCHIATRIC: Appropriate mood and affect; insight and judgment normal. Hospital Course Mr. Arnold is a 66-year-old male. He was admitted secondary to acute appendicitis. He had an appendectomy. Leukocytosis was also present during this visit. He is being treated with ciprofloxacin and Flagyl. He will continue this treatment at discharge. He has been evaluated and cleared by surgery for discharge today. Patient is doing well. Pain control. Leukocytosis has improved. Patient will follow up with surgery in 4 days. Medically clear and stable for discharge home today. Pt Condition on Discharge: Stable Discharge Disposition: Discharge Home Discharge Time: <= 30 minutes Discharge Instructions DIET: Follow Instructions for: As Tolerated, No Restrictions Activities you can perform: Regular-No Restrictions Follow up Referrals: PCP Follow-up - 2 Weeks with [facility] - 11/22/17 with Avinash Chrsity MD Appt set for November 22 at 11AM New Medications: Docusate Sodium (Docusate Sodium) 100 Mg Cap 100 MG PO BID PRN for CONSTIPATION, #20 CAP 0 Refills Lactobacillus Acidophilus (Lactobacillus Acidophilus) 1 Billion Cell Tab 1 TAB PO TIDAC for Nutritional Supplement, #30 TAB 0 Refills Ciprofloxacin (Cipro) 500 Mg Tab 500 MG PO Q12H for Infection for 5 Days, #10 TAB Metronidazole (Flagyl) 500 Mg Tab 500 MG PO Q8HR for Infection for 5 Days, TAB Oxycodone HCl/Acetaminophen (Oxycodone-Acetaminophen 5-325) 5 Mg-325 Mg Tablet 1 TAB PO Q4H PRN for Pain, #20 TAB Continued Medications: Diazepam (Diazepam) 2 Mg Tab 2 MG PO BID PRN for ANXIETY, TAB 0 Refills Dorzolamide-Timolol Opth Drops (Cosopt Opth Drops) 22.3-6.8 Mg/Ml Soln 1 DROP EACH EYE BID for Glaucoma, #1 BOTTLE 0 Refills Magnesium-Calcium Carbonates-Folic Acid (Magnebind-400 Rx) 400-200-1 Mg Tab 1 TAB PO TID for Nutritional Supplement, #90 TAB 0 Refills Omeprazole (Omeprazole) 10 Mg Cap 10 MG PO DAILY, #30 CAP 0 Refills Potassium Chloride ER (Potassium Chloride ER) 8 Meq Cap 8 MEQ PO DAILY for Electrolyte Replacement, #30 CAP 0 Refills Travoprost Opth Drops (Travatan Z Opth Drops) 0.004 % Soln 1 DROP EACH EYE HS for Glaucoma, #1 BOTTLE 0 Refills [Cholesterol Pill] () Murtaza Corona MD November 16, 2017 13:16
== END 2017-11-16 11:44 | disposition home or self-care (01) ==
LOC: NEPC 11:08 → NEDA 12:05 → NEPHCDU 14:58 → N07A 11-14 11:09
PROVIDERS: ADMIT Hospitalist; ATTEND Hospitalist
DX: K35.80 Unspecified acute appendicitis (principal); E78.00 Pure hypercholesterolemia, unspecified; H40.9 Unspecified glaucoma; Z79.899 Other long term (current) drug therapy; K21.9 Gastro-esophageal reflux disease without esophagitis; M41.9 Scoliosis, unspecified; K57.30 Diverticulosis of large intestine without perforation or abscess without bleeding; R16.1 Splenomegaly, not elsewhere classified
CPT/HCPCS: 00840; 44970; 71045; 80048; 80053; 81001; 82784; 83690; 85007; 85027; 86850; 86900; 86901; 88304; 93005; 94150; 96365; 96366; 96375; 99285; G0378; J0131; J1100; J2270; J2405; J2543; J2765; J3010; J7030